=== PATIENT | female | born 1965 | race Caucasian/White ===

== ENCOUNTER → 2018-01-26 | Outpatient (CLI) | payer OTHER ==
[~2018-01-26] MED LIST: ALPR-475 PO; ALPR1TAB2 PO; BUDE3CAP15 PO; CIPR500T87; CLON1TAB4 PO; DICY20TA29 PO; DULO20CA45 PO; GABA600T PO; HYDR-2440 PO; HYDR-3240; OXYC-302 PO; OXYC5CAP2 PO; PARO20TA4 PO; PROC25SU25 PO; ROPI1TAB PO; ROPI5TAB
== END | disposition home or self-care (01) ==
LOC: RAD 10:17
DX: C64.9 Malignant neoplasm of unspecified kidney, except renal pelvis (principal); Z87.442 Personal history of urinary calculi
CPT/HCPCS: 76700

== ENCOUNTER 2019-06-25 12:00 | Inpatient (IN) | payer OTHER ==
[~2019-06-25] VITALS: Ht 162.6 cm; Wt 65.4 kg
[~2019-06-25 12:00] MED LIST changes: -ALPR-475 PO; +ALPR0.5T7 PO; +CLON1TAB11 PO; -CLON1TAB4 PO
--- NOTE | 2019-06-25 12:18 | NUR ---
From pcp. body aches/stiffness x2 days worse today. sore throat. no fevers/chills. difficulty getting out of bed. stiffness from "top of my head to my toes". 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 hypotn. 89/40s. Dr. Edgar in room for eval, aware. flu swab. A&Ox4 GCS 15. call alex in reach, plan pending.
[2019-06-25] MEDS ORDERED: ONDANSETRON 2MG/ML, 2ML IVPush ONE (12:30)
[2019-06-25] MEDS ORDERED: MORPHINE SULFATE 4 MG/ML, 1ML ONE (12:37)
[2019-06-25] MEDS ORDERED: ONDANSETRON 2MG/ML, 2ML ONE (12:37)
[2019-06-25] MEDS: MORPHINE SULFATE 4 MG/ML, 1ML IVPush PRN ×2 (12:38→12:45)
[2019-06-25 12:50] LABS: BASOPHILS # (AUTO) 0.03 x10^3/uL (0-0.1); BASOPHILS % (AUTO) 0 % (0-1); EOSINOPHILS # (AUTO) 0.28 x10^3/uL (0-0.4); EOSINOPHILS % (AUTO) 4 % (1-7); LYMPHOCYTES # (AUTO) 1.04 x10^3/uL (1-3.4); LYMPHOCYTES % (AUTO) 14 % (22-44); MD NO; MEAN CORPUSCULAR HEMOGLOBIN 29.1 pg (27.0-34.8); MEAN CORPUSCULAR HGB CONC 33.1 g/dL (32.4-35.8); MEAN CORPUSCULAR VOLUME 87.8 fL (80-100); MEAN PLATELET VOLUME 9.9 fL (7.4-10.4); MONOCYTES # (AUTO) 0.43 x10^3/uL (0.2-0.8); MONOCYTES % (AUTO) 6 % (2-9); NEUTROPHILS # (AUTO) 5.65 x10^3/uL (1.8-6.8); NEUTROPHILS % (AUTO) 76 % (42-75); PLATELET COUNT 266 x10^3/uL (130-400); RED BLOOD COUNT 4.06 x10^6/uL (3.82-5.3); RED CELL DISTRIBUTION WIDTH 15.1 % (9.6-15.2)
--- NOTE | 2019-06-25 12:51 | NUR ---
ivf infusing, labs sent. gregory per mar. holding morphine d/t MAP 62, hr 50s, pt calm, drowsy, took percocet at home. discussed rationale of holding med w/ pt and , agree. call alex in reach.
[2019-06-25 12:56] LABS: RAPID INFLUENZA A Negative (Negative); RAPID INFLUENZA B Negative (Negative)
[2019-06-25 12:57] LABS: HCT (SEDRATE) 35.6 % (34.6-47.8)
[2019-06-25] MEDS ORDERED: SODIUM CHLORIDE 0.9% 1,000ML IVBOLUS ONE ×2 (13:00→13:30)
[2019-06-25 13:04] LABS: ALBUMIN 2.9 g/dL (3.4-5.0); ANION GAP 8 mmol/L (5-15); CALCIUM 8.8 mg/dL (8.5-10.1); CHLORIDE 109 mmol/L (98-107)
[2019-06-25 13:12] LABS: ALANINE AMINOTRANSFERASE 73 U/L (12-78); ALKALINE PHOSPHATASE 185 U/L (45-117); CREATININE 1.19 mg/dL (0.55-1.02); TOTAL PROTEIN 6.9 g/dL (6.4-8.2)
--- NOTE | 2019-06-25 13:16 | NUR ---
2nd liter bolus in progress. updated re: hypotn. pt c/o some dizziness. laying in bed calmly w/ eyes closed. sts she usually takes her oxy now but educated re: hypotension. call alex in reach.
[2019-06-25] MEDS ORDERED: TIZA6CAP PO (13:21)
[2019-06-25] MEDS ORDERED: PROM25TA10 PO (13:21)
[2019-06-25] MEDS ORDERED: OXYC10TA6 PO (13:21)
[2019-06-25] MEDS ORDERED: DICL50TA2 PO (13:21)
[2019-06-25] MEDS ORDERED: ROPI2TAB PO (13:21)
[2019-06-25] MEDS ORDERED: KETOROLAC 30 MG/1 ML ONE (13:23)
[2019-06-25] MEDS ORDERED: KETOROLAC 30 MG/1 ML IVPush ONE (13:30)
--- NOTE | 2019-06-25 13:34 | NUR ---
toradol per mar for generalized 9/10 pain. pt made aware of need for urine sample.
--- NOTE | 2019-06-25 13:39 | NUR ---
Dr. Edgar in to update pt. Pt OOB for urine sample w/ assist from .
--- NOTE | 2019-06-25 14:01 | NUR ---
ivf infusing, roland means on pt. call alex in reach.
[2019-06-25 14:14] LABS: MICROSCOPIC NOT IND
[2019-06-25 14:19] LABS: CULTURE INDICATED? NO
--- NOTE | 2019-06-25 14:36 | NUR ---
pt to be admitted.
[2019-06-25] MEDS: SODIUM CHLORIDE 0.9% 1,000 ML IV SCH (14:38)
--- NOTE | 2019-06-25 14:41 | NUR ---
oob to bathroom. bp improved see vitals.
[2019-06-25] MEDS ORDERED: ACETAMINOPHEN 325 MG TABLET PO PRN (15:00)
[2019-06-25] MEDS ORDERED: ONDANSETRON 2MG/ML, 2ML IVPush PRN (15:00)
[2019-06-25] MEDS ORDERED: LIDODERM 5% PATCH TD PRN (15:00)
[2019-06-25] MEDS ORDERED: morphine SULFATE 10 MG/ML, 1ML IVPush PRN (15:00)
--- NOTE | 2019-06-25 15:54 | NUR ---
Admitting MD in room. per md pt not in network, pt may be tx to [facility] for insurance reasons, sts md will return. vss.
[2019-06-25] MEDS ORDERED: TEMPLATE NON-FORMULARY MED. (Oxycodone Hcl** 10 MG) PO SCH (16:00)
[2019-06-25] MEDS ORDERED: PROMETHAZINE 25 MG/ML, 1ML ONE (16:59)
--- NOTE | 2019-06-25 17:10 | NUR ---
pt vomiting. verbal ordered obtained for phenergan 25 mg IM per DEVONTE Lipscomb. pt transported to floor. vss.
[2019-06-25] MEDS ORDERED: PROMETHAZINE 25 MG/ML, 1ML IM ONE (17:30)
[2019-06-25 17:34] VITALS: BP 105/71
[2019-06-25] MEDS: TIZANIDINE 2MG TABLET PO SCH ×2 (18:07→20:38)
[2019-06-25] MEDS: ENOXAPARIN 40 MG/0.4 ML SQ SCH (18:08)
[2019-06-25 20:05] VITALS: BP 102/63
[2019-06-25] MEDS: OXYcodone IR 5MG TABLET PO SCH (20:34)
[2019-06-25] MEDS ORDERED: ROPINIROLE 1MG TABLET PO SCH (21:00)
[2019-06-26 00:23] VITALS: BP 98/60
[2019-06-26] MEDS: SODIUM CHLORIDE 0.9% 1,000 ML IV SCH ×2 (04:39→17:46)
[2019-06-26] MEDS: KETOROLAC 30 MG/1 ML IV PRN (04:39)
[2019-06-26 05:03] LABS: BASOPHILS # (AUTO) 0.02 x10^3/uL (0-0.1); BASOPHILS % (AUTO) 0 % (0-1); EOSINOPHILS # (AUTO) 0.25 x10^3/uL (0-0.4); EOSINOPHILS % (AUTO) 5 % (1-7); HCT (SEDRATE) 31.7 % (34.6-47.8); LYMPHOCYTES # (AUTO) 1.18 x10^3/uL (1-3.4); LYMPHOCYTES % (AUTO) 24 % (22-44); MD NO; MEAN CORPUSCULAR HEMOGLOBIN 28.9 pg (27.0-34.8); MEAN CORPUSCULAR HGB CONC 32.9 g/dL (32.4-35.8); MEAN CORPUSCULAR VOLUME 88.1 fL (80-100); MEAN PLATELET VOLUME 9.5 fL (7.4-10.4); MONOCYTES # (AUTO) 0.47 x10^3/uL (0.2-0.8); MONOCYTES % (AUTO) 9 % (2-9); NEUTROPHILS # (AUTO) 3.09 x10^3/uL (1.8-6.8); NEUTROPHILS % (AUTO) 62 % (42-75); PLATELET COUNT 220 x10^3/uL (130-400); RED CELL DISTRIBUTION WIDTH 15.3 % (9.6-15.2)
[2019-06-26 05:08] LABS: ALANINE AMINOTRANSFERASE 54 U/L (12-78); ALBUMIN 2.4 g/dL (3.4-5.0); CALCIUM 7.9 mg/dL (8.5-10.1); CREATININE 0.95 mg/dL (0.55-1.02)
[2019-06-26 05:16] LABS: ALKALINE PHOSPHATASE 153 U/L (45-117); CHOL/HDL RATIO 6.4; CHOLESTEROL, TOTAL 197 mg/dL (140-239); HDL CHOL % 16 % (28-40); HDL CHOLESTEROL (DIRECT) 31 mg/dL (40-60); LDL CHOLESTEROL,CALCULATED 128 mg/dL (54-169); LDL/HDL RATIO 4.1 (0.5-3.0); TOTAL PROTEIN 5.7 g/dL (6.4-8.2); TRIGLYCERIDES 189 mg/dL (50-200); VLDL CHOLESTEROL 38 mg/dL (0-25)
[2019-06-26 05:21] LABS: ANION GAP 5 mmol/L (5-15); CHLORIDE 115 mmol/L (98-107)
[2019-06-26] MEDS: OXYcodone IR 5MG TABLET PO SCH ×4 (06:34→21:03)
[2019-06-26 07:44] VITALS: BP 98/66
[2019-06-26] MEDS: GABAPENTIN 300 MG CAPSULE PO PRN (08:49)
[2019-06-26] MEDS: TIZANIDINE 2MG TABLET PO SCH ×3 (08:49→21:03)
[2019-06-26] MEDS: METHOCARBAMOL 500 MG TABLET PO PRN (12:38)
[2019-06-26 14:23] VITALS: BP 97/67
[2019-06-26] MEDS ORDERED: predniSONE 5 MG/5 ML ORAL SOL PO SCH (15:00)
[2019-06-26] MEDS: PANTOPRAZOLE 40 MG IV IVPush SCH (16:19)
[2019-06-26] MEDS: ENOXAPARIN 40 MG/0.4 ML SQ SCH (17:46)
[2019-06-26] MEDS: ROPINIROLE 1MG TABLET PO SCH (18:42)
[2019-06-26 19:56] VITALS: BP 96/60
[2019-06-27] MEDS: SODIUM CHLORIDE 0.9% 1,000 ML IV SCH ×4 (00:45→23:38)
[2019-06-27 01:18] VITALS: BP 110/71
[2019-06-27] MEDS: METHOCARBAMOL 500 MG TABLET PO PRN (03:11)
[2019-06-27] MEDS: OXYcodone IR 5MG TABLET PO SCH ×4 (04:46→21:12)
[2019-06-27 09:12] LABS: BASOPHILS # (AUTO) 0.01 x10^3/uL (0-0.1); BASOPHILS % (AUTO) 0 % (0-1); EOSINOPHILS # (AUTO) 0.02 x10^3/uL (0-0.4); EOSINOPHILS % (AUTO) 0 % (1-7); LYMPHOCYTES # (AUTO) 1.38 x10^3/uL (1-3.4); LYMPHOCYTES % (AUTO) 24 % (22-44); MD NO; MEAN CORPUSCULAR HEMOGLOBIN 28.5 pg (27.0-34.8); MEAN CORPUSCULAR HGB CONC 32.7 g/dL (32.4-35.8); MEAN CORPUSCULAR VOLUME 87.3 fL (80-100); MEAN PLATELET VOLUME 9.3 fL (7.4-10.4); MONOCYTES # (AUTO) 0.29 x10^3/uL (0.2-0.8); MONOCYTES % (AUTO) 5 % (2-9); NEUTROPHILS # (AUTO) 4.02 x10^3/uL (1.8-6.8); NEUTROPHILS % (AUTO) 70 % (42-75); PLATELET COUNT 238 x10^3/uL (130-400); RED BLOOD COUNT 3.91 x10^6/uL (3.82-5.3); RED CELL DISTRIBUTION WIDTH 14.9 % (9.6-15.2)
[2019-06-27 09:19] LABS: ANION GAP 6 mmol/L (5-15); CALCIUM 8.3 mg/dL (8.5-10.1); CHLORIDE 113 mmol/L (98-107); CREATININE 0.85 mg/dL (0.55-1.02)
[2019-06-27 09:30] VITALS: BP 131/85
[2019-06-27] MEDS: TIZANIDINE 2MG TABLET PO SCH ×3 (09:39→21:12)
[2019-06-27] MEDS: ROPINIROLE 1MG TABLET PO SCH (09:39)
[2019-06-27] MEDS: PANTOPRAZOLE 40 MG IV IVPush SCH (09:39)
[2019-06-27] MEDS: methylPREDNISolone SOD SUCC 40 MG/ML IV SCH (09:40)
[2019-06-27] MEDS: GABAPENTIN 300 MG CAPSULE PO PRN (09:40)
[2019-06-27 12:42] VITALS: BP 112/74
[2019-06-27 13:05] LABS: ANA SCREEN NEGATIVE (Negative)
[2019-06-27] MEDS ORDERED: SUMA100T3 PO (15:39)
[2019-06-27] MEDS ORDERED: SUMATRIPTAN 25 MG TABLET ONE (17:50)
[2019-06-27] MEDS: SUMATRIPTAN 50 MG TABLET PO PRN (17:54)
[2019-06-27] MEDS: ENOXAPARIN 40 MG/0.4 ML SQ SCH (17:54)
[2019-06-27 19:32] VITALS: BP 144/87
[2019-06-28 01:17] VITALS: BP 137/88
[2019-06-28] MEDS: METHOCARBAMOL 500 MG TABLET PO PRN ×2 (01:39→15:15)
[2019-06-28 05:32] LABS: HCT (SEDRATE) 33.8 % (34.6-47.8)
[2019-06-28 06:23] VITALS: BP 147/70
[2019-06-28] MEDS: OXYcodone IR 5MG TABLET PO SCH ×4 (06:25→21:25)
[2019-06-28] MEDS: PANTOPRAZOLE 40 MG IV IVPush SCH (08:14)
[2019-06-28] MEDS: methylPREDNISolone SOD SUCC 40 MG/ML IV SCH (08:15)
[2019-06-28] MEDS: TIZANIDINE 2MG TABLET PO SCH ×3 (08:15→21:26)
[2019-06-28] MEDS: SODIUM CHLORIDE 0.9% 1,000 ML IV SCH (08:24)
[2019-06-28 09:23] VITALS: BP 120/78
[2019-06-28] MEDS ORDERED: ROPINIROLE 1MG TABLET PO SCH (10:30)
[2019-06-28 15:10] VITALS: BP 126/72
[2019-06-28] MEDS: GABAPENTIN 300 MG CAPSULE PO PRN (17:15)
[2019-06-28] MEDS: ENOXAPARIN 40 MG/0.4 ML SQ SCH (17:15)
[2019-06-28 19:56] VITALS: BP 144/82
[2019-06-28] MEDS: ONDANSETRON ODT 4 MG PO PRN (21:38)
[2019-06-29 00:06] VITALS: BP 136/79
[2019-06-29] MEDS: METHOCARBAMOL 500 MG TABLET PO PRN ×2 (04:44→14:30)
[2019-06-29] MEDS: OXYcodone IR 5MG TABLET PO SCH ×4 (06:29→21:46)
[2019-06-29] MEDS: ONDANSETRON ODT 4 MG PO PRN (06:29)
[2019-06-29 06:33] VITALS: BP 150/78
[2019-06-29] MEDS: PANTOPRAZOLE 40 MG IV IVPush SCH (07:58)
[2019-06-29] MEDS: TIZANIDINE 2MG TABLET PO SCH ×3 (07:58→21:45)
[2019-06-29] MEDS: methylPREDNISolone SOD SUCC 40 MG/ML IV SCH (07:58)
[2019-06-29 09:04] LABS: HCT (SEDRATE) 31.7 % (34.6-47.8)
[2019-06-29] MEDS: ROPINIROLE 1MG TABLET PO SCH (09:29)
[2019-06-29 13:20] VITALS: BP 126/83
[2019-06-29] MEDS ORDERED: POLYETHYLENE GLYCOL 17 GM PACKET NG ONE (16:30)
[2019-06-29] MEDS ORDERED: SENNA/DOCUSATE TABLET PO PRN (16:30)
[2019-06-29] MEDS: ENOXAPARIN 40 MG/0.4 ML SQ SCH (17:09)
[2019-06-29 21:00] VITALS: BP 122/73
[2019-06-29] MEDS ORDERED: SUMATRIPTAN 25 MG TABLET ONE (21:33)
[2019-06-29] MEDS: SUMATRIPTAN 50 MG TABLET PO PRN (21:47)
[2019-06-30] VITALS (7 sets, daily range): BP systolic 109–184; BP diastolic 66–94
[2019-06-30] MEDS ORDERED: hydrALAzine 20 MG/ML, 1ML IV ONE (00:30)
[2019-06-30] MEDS: ONDANSETRON ODT 4 MG PO PRN ×2 (04:05→15:04)
[2019-06-30] MEDS: GABAPENTIN 300 MG CAPSULE PO PRN (04:05)
[2019-06-30] MEDS: KETOROLAC 30 MG/1 ML IV PRN (04:05)
[2019-06-30] MEDS: METHOCARBAMOL 500 MG TABLET PO PRN (04:27)
[2019-06-30] MEDS: OXYcodone IR 5MG TABLET PO SCH ×3 (05:35→16:19)
[2019-06-30] MEDS: PANTOPRAZOLE 40 MG IV IVPush SCH (08:57)
[2019-06-30] MEDS: methylPREDNISolone SOD SUCC 40 MG/ML IV SCH (08:58)
[2019-06-30] MEDS: ROPINIROLE 1MG TABLET PO SCH (08:58)
[2019-06-30] MEDS: TIZANIDINE 2MG TABLET PO SCH ×2 (08:58→16:18)
[2019-06-30 10:04] LABS: HCT (SEDRATE) 34.9 % (34.6-47.8)
[2019-06-30 10:13] LABS: C-REACTIVE PROTEIN, QUANT 0.66 mg/dL (0.02-0.49)
[2019-06-30] MEDS ORDERED: SUMATRIPTAN 6MG/0.5ML SQ ONE (13:00)
[2019-06-30] MEDS ORDERED: ONDANSETRON 2MG/ML, 2ML IVPush PRN (13:00)
[2019-06-30] MEDS ORDERED: KETOROLAC 30 MG/1 ML IV ONE (13:00)
[2019-06-30] MEDS ORDERED: PRED20TA PO (15:16)
[2019-06-30] MEDS ORDERED: FLU VACC QS2019-20 36MOS UP/PF 0.5 ML IM-VACC ONE (17:00)
[2019-06-30] MEDS ORDERED: FLU VACC QS2019-20 36MOS UP/PF 0.5 ML IM ONE (17:00)
[2019-06-30] MEDS: ENOXAPARIN 40 MG/0.4 ML SQ SCH (17:30)
== END 2019-06-30 18:20 | disposition home or self-care (01) | DRG 546 ==
LOC: ED 14:23 → EDIP 14:24 → ED 14:29 → 4WST 17:18
PROVIDERS: ADMIT Internal Medicine; ATTEND Hospitalist
DX: M35.3 Polymyalgia rheumatica (principal); M33.20 Polymyositis, organ involvement unspecified; G89.29 Other chronic pain; I95.89 Other hypotension; K90.0 Celiac disease; Z90.5 Acquired absence of kidney; Z85.528 Personal history of other malignant neoplasm of kidney; Z83.3 Family history of diabetes mellitus; Z91.018 Allergy to other foods
CPT/HCPCS: 36415; 70450; 71045; 80048; 80053; 80061; 81003; 82550; 83735; 84100; 84443; 85025; 85651; 86038; 86140; 86200; 86308; 86431; 86756; 87081; 87400; 87880; 90686; 93005; 99285; G0378; J1650; J1885; J2405; J2550; J7512; Q0162; C9113; J0360; J2270; J2920; J3030; J7030